=== PATIENT | male | born 1955 | race Caucasian/White ===

== ENCOUNTER 2018-09-03 12:44 | Emergency (ER) | payer BC, OTHER ==
[~2018-09-03 12:44] MED LIST: AMOX500C2 PO; IBUP-1542 PO
[2018-09-03] MEDS ORDERED: ERYT1OIN6 LEFT EYE (15:07)
--- NOTE | 2018-09-03 15:15 | ERD ---
ER Documentation Chief Complaint Chief Complaint HPI 63-year-old male presents with complaint of mass in the lower left inner eyelid. States that is been there for 2 days. States that his not painful but slightly tender to palpation. Denies any vision problems. Not taking any treatments. Denies any fevers chills. ROS All systems reviewed and are negative except as per history of present illness. Medications Home Meds Active Scripts Erythromycin Base (Erythromycin) 1 Gm Oint...g., 1 APPLIC LEFT EYE QID for ho rdeolum for 7 Days, #1 TUB Apply until symptoms resolve. Also use warm compresses. Prov:LYNDA BEAVERS 09/03/18 Ibuprofen* (Motrin*) 600 Mg Tab, 600 MG PO Q6, #20 TAB Prov:GERARDO BENITEZ MD 01/23/15 Amoxicillin* (Amoxicillin*) 500 Mg Cap, 500 MG PO TID for 10 Days, CAP Prov:GERARDO BENITEZ MD 01/23/15 Allergies Allergies: Coded Allergies: No Known Allergy (Unverified , 01/23/15) PMhx/Soc History of Surgery: No Anesthesia Reaction: No Hx Neurological Disorder: No Hx Respiratory Disorders: Yes (BRONCHITIS) Hx Cardiac Disorders: No Hx Psychiatric Problems: No Hx Miscellaneous Medical Probl: No Hx Alcohol Use: No Hx Substance Use: No Hx Tobacco Use: No FmHx Family History: No diabetes, No coronary disease, No other Physical Exam Physical Exam Const: No acute distress Head: Atraumatic Eyes: Normal Conjunctiva. Small approximately 2 mm mass noted in the internal lower left eyelid consistent with hordeolum. There is no surrounding cellulitis noted. EOMs intact. PERRLA. ENT: Normal External Ears, Nose and Mouth. Neck: Full range of motion. No meningismus. Resp: Clear to auscultation bilaterally Cardio: Regular rate and rhythm, no murmurs Abd: Soft, non tender, non distended. Normal bowel sounds Skin: No petechiae or rashes Back: No midline or flank tenderness Ext: No cyanosis, or edema Neur: Awake and alert Psych: Normal Mood and Affect Results 24 hrs Current Medications Medications Dose Sig/Americo Start Time Status Last (Trade) Ordered Route PRN Stop Time Admin Dose Reason Admin 1 applic ONCE ONCE 09/03/18 Erythromycin LEFT EYE 15:30 09/03/18 15:31 (Erythromycin Oph Oint) Procedures/MDM MDM: Patient's presentation is consistent with hordeolum. Erythromycin ointment was applied in the ER and patient was discharged with Rx for erythromycin ointment. Patient also advised to use warm compresses. In addition patient was given referral to [facility]. I have low suspicion for preseptal or periorbital cellulitis, uveitis, or any other emergent condition. Patient discharged with strict ER precautions. Patient advised to follow up with PMD. All questions answered at discharge. Departure Diagnosis: Primary Impression: Hordeolum internum of left lower eyelid Condition: Stable Patient Instructions: Sty Referrals: [facility] Hours: Thu - Thu 9:00 AM - 5:00 PM Additional Instructions: Please follow-up with [facility]. In the meantime use warm compresses daily. Also apply the antibiotic daily. Return to ER if worsening symptoms. LYNDA BEAVERS September 03, 2018 15:15
[2018-09-03] MEDS ORDERED: ERYTHROMYCIN 1 GM OPH OINT LEFT EYE ONE (15:30)
== END 2018-09-03 15:37 | disposition home or self-care (01) ==
LOC: FTE 12:44
DX: H00.025 Hordeolum internum left lower eyelid (principal)
CPT/HCPCS: 99283